=== PATIENT | female | born 1950 | race Two or more races ===

== ENCOUNTER 2022-02-02 18:57 | Emergency (ER) | payer OTHER ==
[~2022-02-02] VITALS: Ht 170.2 cm; Wt 77.1 kg
[2022-02-03 01:11] VITALS: BP 147/86
== END 2022-02-03 01:14 | disposition home or self-care (01) ==
LOC: ER 19:03
DX: U07.1 COVID-19 (principal); F41.9 Anxiety disorder, unspecified; F32.9 Major depressive disorder, single episode, unspecified; I10 Essential (primary) hypertension; Z98.51 Tubal ligation status
CPT/HCPCS: 36415; 87426; 87804